=== PATIENT | male | born 1995 | race African-American/Black ===

== ENCOUNTER → 2018-07-08 | Emergency (ER) | payer OTHER ==
[~2018-07-08] VITALS: Ht 177.8 cm; Wt 77.3 kg
[~2018-07-08] MED LIST: ACNE CREAM TOP; ALBUTEROL; ALBUTEROL INHALER INH; PRED20TA PO
[2018-07-08 02:03] VITALS: BP 141/92
== END | disposition left against medical advice (07) ==
LOC: M ED 02:03
DX: R06.02 Shortness of breath (principal); Z53.21 Procedure and treatment not carried out due to patient leaving prior to being seen by health care provider

== ENCOUNTER 2018-07-15 00:52 | Emergency (ER) | payer OTHER, SELFPAY ==
[~2018-07-15] VITALS: Ht 177.8 cm; Wt 81.8 kg
[~2018-07-15 00:52] MED LIST changes: -PRED20TA PO
[2018-07-15] MEDS ORDERED: predniSONE 20 MG TAB PO ONE (01:15)
[2018-07-15] MEDS ORDERED: IPRATROPIUM 0.5MG/ALBUTEROL 2.5MG INH SOL UD 3ML (DUONEB)(J7620) NEB ONE (01:15)
[2018-07-15 01:47] VITALS: BP 141/83
[2018-07-15] MEDS ORDERED: PRED20TA PO (02:03)
[2018-07-15] MEDS ORDERED: ALBUTEROL 90 MCG/ACT 8GM HFA INHALER INH ONE (02:15)
--- NOTE | 2018-07-15 09:04 | REP ---
HISTORY: Cough and dyspnea. COMPARISON: 07/25/2015 FINDINGS: The superior mediastinal structures are midline. The cardiac silhouette is unremarkable in size, shape and position. The diaphragmatic surfaces of the lungs are regular and the costophrenic angles are clear. The pulmonary cisneros are clear. The imaged osseous structures are intact. IMPRESSION: There is no acute cardiopulmonary disease. Electronically Signed by Kalyan Mckeon DO 07/15/2018 10:28 A
== END 2018-07-15 02:00 | disposition home or self-care (01) ==
LOC: M ED 00:52
DX: J45.901 Unspecified asthma with (acute) exacerbation (principal)

== ENCOUNTER → 2018-11-03 | Outpatient (REF) | payer OTHER, MEDICAID ==
[~2018-11-03] MED LIST changes: +PRED20TA PO
[2018-11-03 13:55] LABS: BASO % 0.7 % (0.0-1.0); EOS # 0.2 10^3/uL (0.0-0.5); EOS % 2.7 % (0.0-3.0); HEMATOCRIT 51.5 % (42.0-52.0); HEMOGLOBIN 15.4 g/dl (13.5-17.5); LYMPH # 1.2 10^3/uL (1.5-5.0); LYMPH % 19.9 % (24.0-44.0); MEAN CORPUSCULAR HEMOGLOBIN 21.3 pg (27.0-33.0); MEAN CORPUSCULAR HGB CONC 29.9 g/dl (32.0-36.5); MEAN CORPUSCULAR VOLUME 71.3 fl (80.0-96.0); MONO # 0.5 10^3/uL (0.0-0.8); MONO % 8.9 % (0.0-5.0); NEUTROPHILS # 4.1 10^3/uL (1.5-8.5); NEUTROPHILS % 67.6 % (36.0-66.0); PLATELET COUNT, AUTOMATED 282 10^3/uL (150-450); RED BLOOD COUNT 7.22 10^6/uL (4.30-6.10)
[2018-11-03 14:22] LABS: ALBUMIN 4.2 GM/DL (3.2-5.2); ALT/SGPT 34 U/L (12-78); BILIRUBIN,TOTAL 0.5 MG/DL (0.2-1.0); BLOOD UREA NITROGEN 11 MG/DL (7-18); CALCIUM LEVEL 9.6 MG/DL (8.5-10.1); CARBON DIOXIDE LEVEL 31 MEQ/L (21-32); CHLORIDE LEVEL 105 MEQ/L (98-107); CHOLESTEROL LEVEL 133 MG/DL (<200); CHOLESTEROL RISK RATIO 2.714 (<5); CREATININE FOR GFR 1.23 MG/DL (0.70-1.30); FREE T4 1.11 NG/DL (0.76-1.46); GLOMERULAR FILTRATION RATE > 60.0 (>60); GLUCOSE, FASTING 76 MG/DL (70-100); HDL CHOLESTEROL 49 MG/DL (>40); LDL CHOLESTEROL 75 MG/DL (<100); NON-HDL-C 84 MG/DL; POTASSIUM SERUM 4.7 MEQ/L (3.5-5.1); SODIUM LEVEL 140 MEQ/L (136-145); TOTAL PROTEIN 7.9 GM/DL (6.4-8.2); TRIGLYCERIDES LEVEL 46 MG/DL (<150)
[2018-11-03 14:25] LABS: HEMOGLOBIN A1c 5.5 %
== END ==
LOC: M LAB REF 12:50
PROVIDERS: ATTEND Nurse Practitioner Family
DX: Z00.00 Encounter for general adult medical examination without abnormal findings (principal)

== ENCOUNTER 2018-12-04 02:11 | Emergency (ER) | payer MEDICAID, OTHER ==
[~2018-12-04] VITALS: Ht 177.8 cm; Wt 79.5 kg
[2018-12-04] MEDS ORDERED: ALBU8.5H IH ×2 (02:15→03:30)
[2018-12-04] MEDS ORDERED: ZYRTTAB8 PO (02:15)
[2018-12-04] MEDS: IPRATROPIUM 0.5MG/ALBUTEROL 2.5MG INH SOL UD 3ML (DUONEB)(J7620) NEB PRN ×3 (03:04→03:37)
[2018-12-04] MEDS ORDERED: ALBUTEROL 90 MCG/ACT 8GM HFA INHALER INH ONE (03:30)
[2018-12-04 04:10] VITALS: BP 129/88
--- NOTE | 2018-12-04 08:06 | REP ---
PA and lateral chest: Comparison is 07/15/2018. The lung cisneros are clear. The cardiac size is normal. The rosas, mediastinum, and skeletal structures are unremarkable. Impression: Negative PA and lateral chest. There is no interval change. Electronically Signed by Maged Morrow MD 12/04/2018 07:58 A
== END 2018-12-04 04:11 | disposition home or self-care (01) ==
LOC: M ED 02:11
DX: J45.901 Unspecified asthma with (acute) exacerbation (principal); Z79.899 Other long term (current) drug therapy

== ENCOUNTER 2018-12-13 12:50 | Emergency (ER) | payer OTHER ==
[~2018-12-13] VITALS: Ht 177.8 cm; Wt 75.1 kg
[~2018-12-13 12:50] MED LIST changes: +ALBU8.5H IH; +ZYRTTAB8 PO
[2018-12-13 12:51] VITALS: BP 134/88
[2018-12-13] MEDS ORDERED: CEPH500C PO (12:59)
[2018-12-13] MEDS ORDERED: LIDOCAINE 2% MDV 20 ML VIAL SC ONE (13:30)
== END 2018-12-13 14:18 | disposition home or self-care (01) ==
LOC: M ED 12:50
DX: L03.012 Cellulitis of left finger (principal); J45.909 Unspecified asthma, uncomplicated

== ENCOUNTER → 2019-12-28 | Outpatient (REF) | payer OTHER ==
[~2019-12-28] MED LIST changes: +CEPH500C PO
== END ==
LOC: M LAB REF 15:16
PROVIDERS: ATTEND Physician Assistant
DX: Z11.3 Encounter for screening for infections with a predominantly sexual mode of transmission (principal)